=== PATIENT | female | born 1955 | race Caucasian/White ===

== ENCOUNTER 2024-02-13 22:15 | Inpatient (IN) | payer MEDICARE, OTHER ==
[~2024-02-13] VITALS: Ht 146.1 cm; Wt 67.5 kg
[~2024-02-13 22:15] MED LIST: ALPR-624 PO; AMLO-140 PO; ASPI-611 PO; CARV3.12 PO; ISOS10TA2 PO; LOSA50TA64 PO; NITR0.4T SL; PRAV40TA3 PO; TICA90TA2 PO
[2024-02-13] MEDS ORDERED: aspirin 81mg tab.chew PO ONE (22:30)
[2024-02-13] MEDS: aspirin 81mg tab.chew PO ONE (22:43)
[2024-02-13] MEDS ORDERED: nitroGLYCERIN 0.4mg SUBLingual tab SL PRN (23:00)
[2024-02-13] MEDS ORDERED: heparin 10,000 units/1 ML INJ IV ONE ×2 (23:00)
[2024-02-13] MEDS ORDERED: heparin 10,000 units/1 ML INJ IV PRN (23:00)
[2024-02-13] MEDS ORDERED: nitroGLYCERIN-Tridil 50MG/D5W 250 ML IV PRN (23:00)
[2024-02-13] MEDS ORDERED: heparin 25,000 UNIT/250ml bag 250 ML IV PRN (23:00)
[2024-02-13] MEDS ORDERED: LIDOcaine 1% 30ml preserv. free vial ONE (23:04)
[2024-02-13] MEDS ORDERED: midazolam 1 mg/ML 2ml injection ONE (23:04)
[2024-02-13] MEDS ORDERED: fentaNYL/PF 50MCG/1 ML 2ML syringe ONE (23:04)
[2024-02-13] MEDS ORDERED: heparin 1,000unit/ml 10ml vial 10 ML ONE (23:05)
[2024-02-13] MEDS ORDERED: iohexol 350MG/ML 100ml bottle IV ONE (23:05)
[2024-02-13] MEDS ORDERED: epiNEPHrine 0.1mg/ml 10ml syringe ONE (23:05)
[2024-02-13] MEDS ORDERED: atropine 0.1mg/ml 10ml syringe ONE (23:05)
[2024-02-13] MEDS ORDERED: nitroGLYCERIN 25mg/250mL D5W 250 ML IV SCH (23:05)
[2024-02-13] MEDS ORDERED: iohexol 350 MG/ML 50ML vial IV ONE (23:05)
[2024-02-13 23:08] LABS: PROTHROMBIN TIME 9.9 SECONDS (9.0-12.0)
[2024-02-13 23:10] LABS: INR 0.9 INR
[2024-02-13] MEDS: heparin 10,000 units/1 ML INJ IV ONE (23:10)
[2024-02-13] MEDS: MESSAGE TO NURSING IV ONE (23:10)
[2024-02-13] MEDS: metoprolol tartrate 1mg/ml inj IV ONE (23:11)
[2024-02-13 23:12] LABS: BASOPHILS # (AUTO) 0.1 X10'3 (0-0.2); BASOPHILS % (AUTO) 0.9 % (0-1); EOSINOPHILS # (AUTO) 0.2 X10'3 (0-0.9); EOSINOPHILS % (AUTO) 1.5 % (0-6); HEMATOCRIT 46.6 % (35.0-45.0); HEMOGLOBIN 15.5 g/dl (12.0-16.0); LYMPHOCYTES # (AUTO) 2.5 X10'3 (1.1-4.8); LYMPHOCYTES % (AUTO) 19.9 % (21-51); MEAN CORPUSCULAR HEMOGLOBIN 30.6 PG (27.0-31.0); MEAN CORPUSCULAR HGB CONC 33.3 g/dL (33.0-36.5); MEAN PLATELET VOLUME 7.6 FL (7.4-10.4); MONOCYTES # (AUTO) 1.4 X10'3 (0-0.9); NEUTROPHILS # (AUTO) 8.2 X10'3 (1.8-7.7); NEUTROPHILS % (AUTO) 66.7 % (42-75); PLATELET COUNT 317 X10'3 (140-440); RED BLOOD COUNT 5.06 X10'6 (4.20-5.60); RED CELL DISTRIBUTION WIDTH 14.1 % (11.5-14.5); WHITE BLOOD COUNT 12.3 X10'3 (4.5-11.0)
[2024-02-13] MEDS: heparin 25,000 UNIT/250ml bag 250 ML IV PRN (23:16)
[2024-02-13 23:17] LABS: ALBUMIN 3.7 G/DL (3.4-5.0); ANION GAP 8 (8-16); BLOOD UREA NITROGEN 20 MG/DL (7-18); BUN/CREATININE RATIO 17.7 (10.0-20.0); CHLORIDE 105 MMOL/L (99-107); CREATININE 1.13 MG/DL (0.40-0.90); GLUCOSE 182 MG/DL (70-104); LIPASE 17 U/L (16-77); MAGNESIUM 2.1 MG/DL (1.5-2.4); POTASSIUM 3.5 MMOL/L (3.5-5.1); PRO BRAIN NATRIURETIC PEPTIDE 1593 PG/ML (0-125); SODIUM 144 MMOL/L (135-145); TOTAL CARBON DIOXIDE 30.6 MMOL/L (24-32); eCRCL 29 ML/MIN; eGFR 48 ML/MIN
[2024-02-13] MEDS ORDERED: nitroGLYCERIN 500mcg/5mL D5W 5 ML IV ONE (23:17)
[2024-02-13] MEDS ORDERED: verapamil 2.5 mg/ml inj IV ONE (23:19)
[2024-02-13 23:24] LABS: APTT 35 SECONDS (22-32); D-DIMER 0.59 MG/L FEU (0-0.50)
[2024-02-13] MEDS ORDERED: aspirin 81mg tab.chew ONE (23:30)
[2024-02-13] MEDS ORDERED: aspirin 325mg tablet ONE (23:58)
[2024-02-14] VITALS (27 sets, daily range): BP systolic 100–168; BP diastolic 50–124; PULSE 55–81; RESP 0–23; TEMP 97.3–98.6; O2SAT 91–97
[2024-02-14] MEDS ORDERED: OXAZEpam 15mg capsule PO PRN (00:35)
[2024-02-14] MEDS: normal saline 1000ml 1,000 ML IV SCH ×2 (01:25→04:40)
[2024-02-14] MEDS ORDERED: magnesium hydroxide 30ml (MOM) UD suspension PO PRN (03:35)
[2024-02-14] MEDS ORDERED: magnesium 4gm in 100ml NS 100 ML IV PRN (03:35)
[2024-02-14] MEDS ORDERED: mag hydrox/Alum hydrox/simeth 30ml oral suspension PO PRN (03:35)
[2024-02-14] MEDS ORDERED: morphine 2 MG/ML inj. syringe IV PRN (03:35)
[2024-02-14] MEDS ORDERED: magnesium 2GM in 50ml NS 50 ML IV PRN (03:35)
[2024-02-14] MEDS ORDERED: ondansetron/PF 4mg/2ml inj IV PRN (03:35)
[2024-02-14] MEDS ORDERED: magnesium Cl slow-release 64mg tablet PO PRN (03:35)
[2024-02-14] MEDS ORDERED: potassium Cl 20 mEq SR tablet PO PRN ×2 (03:35)
[2024-02-14] MEDS: acetaminophen 325mg tablet PO PRN (05:33)
[2024-02-14] MEDS: nitroGLYCERIN-Tridil 50MG/D5W 250 ML IV SCH (05:36)
[2024-02-14 06:19] LABS: HEMOGLOBIN 13.6 g/dl (12.0-16.0)
[2024-02-14 06:21] LABS: BASOPHILS # (AUTO) 0.1 X10'3 (0-0.2); BASOPHILS % (AUTO) 0.9 % (0-1); EOSINOPHILS # (AUTO) 0.2 X10'3 (0-0.9); EOSINOPHILS % (AUTO) 2.4 % (0-6); HEMATOCRIT 40.7 % (35.0-45.0); LYMPHOCYTES # (AUTO) 3.1 X10'3 (1.1-4.8); MEAN CORPUSCULAR HEMOGLOBIN 30.9 PG (27.0-31.0); MEAN CORPUSCULAR HGB CONC 33.5 g/dL (33.0-36.5); MEAN CORPUSCULAR VOLUME 92.3 FL (78-98); MEAN PLATELET VOLUME 7.9 FL (7.4-10.4); MONOCYTES % (AUTO) 10.3 % (2-12); NEUTROPHILS # (AUTO) 5.6 X10'3 (1.8-7.7); NEUTROPHILS % (AUTO) 55.4 % (42-75); PLATELET COUNT 267 X10'3 (140-440); RED BLOOD COUNT 4.41 X10'6 (4.20-5.60); RED CELL DISTRIBUTION WIDTH 13.8 % (11.5-14.5); WHITE BLOOD COUNT 10.1 X10'3 (4.5-11.0)
[2024-02-14 06:31] LABS: ALANINE AMINOTRANSFERASE 16 U/L (12-78); ALKALINE PHOSPHATASE 101 IU/L (46-116); ANION GAP 5 (8-16); ASPARTATE AMINO TRANSFERASE 22 U/L (10-37); BILIRUBIN,TOTAL 0.4 MG/DL (0.1-1.0); BLOOD UREA NITROGEN 18 MG/DL (7-18); CALCIUM 8.8 MG/DL (8.5-10.1); CHLORIDE 109 MMOL/L (99-107); CREATININE 0.75 MG/DL (0.40-0.90); GLUCOSE 116 MG/DL (70-104); MAGNESIUM 1.9 MG/DL (1.5-2.4); PHOSPHORUS 4.3 MG/DL (2.3-4.5); POTASSIUM 3.3 MMOL/L (3.5-5.1); SODIUM 143 MMOL/L (135-145); TOTAL CARBON DIOXIDE 29.2 MMOL/L (24-32); TOTAL PROTEIN 5.9 G/DL (6.4-8.2); eCRCL 44 ML/MIN; eGFR 77 ML/MIN
[2024-02-14] MEDS: MESSAGE TO NURSING IV ONE ×4 (06:52→18:28)
[2024-02-14 07:18] LABS: HEMOGLOBIN A1C 6.2 % (4.5-6.2)
[2024-02-14] MEDS: aspirin 81mg, enteric-coated 1 TAB TABLET.DR PO SCH (07:49)
[2024-02-14] MEDS: K and/or MAG REPLACEMENT MC SCH (08:00)
[2024-02-14] MEDS: losartan 25mg tablet PO SCH (08:00)
[2024-02-14] MEDS: atorvastatin 20mg tablet PO SCH (08:00)
[2024-02-14] MEDS: metoprolol tartrate 25mg tablet PO SCH (08:00)
[2024-02-14] MEDS: potassium Cl 40MEQ/1/2NS 520ml 520 ML IV PRN (11:46)
[2024-02-14] MEDS: heparin 10,000 units/1 ML INJ IV PRN (11:52)
[2024-02-14] MEDS ORDERED: ondansetron 4mg rapidly disintigrating tab PO PRN (12:10)
[2024-02-14] MEDS: MESSAGE TO NURSING PO ONE ×4 (12:17→12:18)
[2024-02-14] MEDS ORDERED: ERGO400C2 PO (16:16)
[2024-02-14] MEDS ORDERED: UBID100C16 PO (16:16)
[2024-02-14] MEDS ORDERED: RED600TA PO (16:19)
[2024-02-14] MEDS ORDERED: ASCO100031 PO (16:19)
[2024-02-14] MEDS ORDERED: CAYE450C PO (16:19)
[2024-02-14] MEDS ORDERED: heparin 25,000 UNIT/250ml bag 250 ML IV PRN (17:59)
[2024-02-14 20:03] LABS: ABG OXYGEN SATURATION 95.2 % (94-97); ABG PCO2 (T) 34.6 mmHg (32.0-45.0); ABG PO2 (T) 70.7 mmHg (75.0-100.0); ALLEN'S TEST Modified; FCOHb 1.2 % (0.0-3.9); FHHb 4.7 % (0.0-5.0); FMetHb 0.3 % (0.0-1.5); FO2Hb 93.8 % (94-97); MODE RA; PATIENT TEMPERATURE 36.8; TOTAL HEMOGLOBIN 12.7 G/dl (12.0-16.0)
[2024-02-14] MEDS: sod chloride 0.9% 10ml flush syringe IV SCH (20:23)
[2024-02-15] VITALS (26 sets, daily range): BP systolic 118–168; BP diastolic 62–99; PULSE 54–94; RESP 11–23; O2SAT 92–99
[2024-02-15 01:33] LABS: BASOPHILS # (AUTO) 0.1 X10'3 (0-0.2); BASOPHILS % (AUTO) 0.6 % (0-1); EOSINOPHILS # (AUTO) 0.2 X10'3 (0-0.9); EOSINOPHILS % (AUTO) 2.8 % (0-6); HEMATOCRIT 36.7 % (35.0-45.0); HEMOGLOBIN 12.2 g/dl (12.0-16.0); LYMPHOCYTES % (AUTO) 33.6 % (21-51); MEAN CORPUSCULAR HEMOGLOBIN 30.9 PG (27.0-31.0); MEAN CORPUSCULAR HGB CONC 33.3 g/dL (33.0-36.5); MEAN CORPUSCULAR VOLUME 92.9 FL (78-98); MEAN PLATELET VOLUME 7.1 FL (7.4-10.4); MONOCYTES # (AUTO) 0.8 X10'3 (0-0.9); MONOCYTES % (AUTO) 9.3 % (2-12); NEUTROPHILS # (AUTO) 4.7 X10'3 (1.8-7.7); NEUTROPHILS % (AUTO) 53.7 % (42-75); PLATELET COUNT 238 X10'3 (140-440); RED BLOOD COUNT 3.95 X10'6 (4.20-5.60); RED CELL DISTRIBUTION WIDTH 13.7 % (11.5-14.5); WHITE BLOOD COUNT 8.8 X10'3 (4.5-11.0)
[2024-02-15 01:50] LABS: ALANINE AMINOTRANSFERASE 38 U/L (12-78); ALBUMIN 2.9 G/DL (3.4-5.0); ALKALINE PHOSPHATASE 85 IU/L (46-116); ANION GAP 5 (8-16); ASPARTATE AMINO TRANSFERASE 37 U/L (10-37); BILIRUBIN,TOTAL 0.3 MG/DL (0.1-1.0); BLOOD UREA NITROGEN 11 MG/DL (7-18); BUN/CREATININE RATIO 16.7 (10.0-20.0); CALCIUM 8.3 MG/DL (8.5-10.1); CHLORIDE 112 MMOL/L (99-107); CHOL/HDL RATIO 3.4 (0.00-4.99); CHOLESTEROL 163 MG/DL (0-200); CREATININE 0.66 MG/DL (0.40-0.90); GLUCOSE 115 MG/DL (70-104); HDL CHOLESTEROL 48 MG/DL (35-60); LDL CHOLESTEROL 92 MG/DL (50-100); MAGNESIUM 1.7 MG/DL (1.5-2.4); PHOSPHORUS 3.3 MG/DL (2.3-4.5); POTASSIUM 3.7 MMOL/L (3.5-5.1); SODIUM 143 MMOL/L (135-145); TOTAL CARBON DIOXIDE 25.8 MMOL/L (24-32); TOTAL PROTEIN 5.7 G/DL (6.4-8.2); TRIGLYCERIDES 111 MG/DL (20-135); eCRCL 50 ML/MIN; eGFR 89 ML/MIN
[2024-02-15] MEDS: MESSAGE TO NURSING IV ONE (02:52)
[2024-02-15] MEDS: cefazolin 2gm/D5W 100mL 100 ML IV ONE (05:30)
[2024-02-15] MEDS ORDERED: heparin 10,000 units/1 ML INJ ONE (06:08)
[2024-02-15] MEDS ORDERED: BUPIVACAINE liposomal/PF 13.3 MG/ML vial IM ONE (06:09)
[2024-02-15] MEDS ORDERED: ceFAZolin 1000mg inj ONE (06:09)
[2024-02-15] MEDS ORDERED: BUPIVAcaine/PF 2.5mg/ml (0.25%) 10ml vial ONE (06:09)
[2024-02-15] MEDS ORDERED: LIDOcaine 1% (10mg/ml) 2ml vial ONE (06:45)
[2024-02-15] MEDS ORDERED: aminocaproic acid 250 MG/1 ML inj. ONE (08:00)
[2024-02-15] MEDS: MESSAGE TO PHARMACY IJ ONE (08:00)
[2024-02-15] MEDS ORDERED: papaverine 30 mg/ml 2ml inj. ONE (08:00)
[2024-02-15] MEDS: ceFAZolin 1000mg inj IR ONE (08:00)
[2024-02-15] MEDS ORDERED: MIDAZolam 1 MG/ML 5ML VIAL ONE (08:03)
[2024-02-15] MEDS ORDERED: SUfentanil 50mcg/ml 1ml amp IV ONE (08:04)
[2024-02-15] MEDS ORDERED: rocuronium 10mg/ml inj IV ONE ×3 (08:05→11:29)
[2024-02-15] MEDS ORDERED: propofol inj 20 ML IV ONE (08:07)
[2024-02-15] MEDS ORDERED: ePHEDrine 50MG/ML INJ. ONE (08:07)
[2024-02-15] MEDS ORDERED: sevoflurane 250ml liquid IH ONE (08:12)
[2024-02-15] MEDS ORDERED: Insulin Reg/NS 100units/100mL 100 ML IV SCH (08:50)
[2024-02-15] MEDS ORDERED: dextrose 50%-water 50ml dispensing syringe IV PRN ×2 (08:50→13:05)
[2024-02-15 09:01] LABS: ABG BASE EXCESS -1.4 mmol/L (-2.0-2.0); ABG HCO3 22.1 mmol/L (22.0-26.0); ABG PCO2 33.1 mmHg (32.0-45.0); ABG PH 7.442 (7.350-7.450); ABG PO2 274.7 mmHg (75.0-100.0); CL (ABG) 110 mmol/L (99-107); FCOHb 0.3 % (0.0-3.9); FO2Hb 98.7 % (94-97); GLUCOSE (ABG) 143 mg/dl (70-104); IONIZED CA (ABG) 1.15 mmol/L (1.10-1.30); K (ABG) 3.5 mmol/L (3.5-5.1); TOTAL HEMOGLOBIN 12.1 G/dl (12.0-16.0)
[2024-02-15] MEDS: MESSAGE TO NURSING PO ONE (10:31)
[2024-02-15 11:16] LABS: ABG BASE EXCESS VENOUS -2.2 mmol/L (-2.0 - 2.0); ABG HCO3 VENOUS 23.3 mmol/L (21.0-28.0); ABG OXYGEN SATURATION VENOUS 78.6 % (75 - 99 %); ABG PCO2 VENOUS 42.7 mmHg (38.0-51.0); ABG PH (VENOUS) 7.354 (7.310-7.450); ABG PO2 VENOUS 42.7 mmHg (25.0-35.0); CL (ABG) 110 mmol/L (99-107); FCOHb VENOUS 0.6 % (0.0- 3.9); FHHb VENOUS 21.2 %; FMetHb VENOUS 0.3 % (0.0 - 0.5); FO2Hb VENOUS 77.9 %; GLUCOSE (ABG) 116 mg/dl (70-104); IONIZED CA (ABG) 1.14 mmol/L (1.10-1.30); K (ABG) 3.4 mmol/L (3.5-5.1); TOTAL HEMOGLOBIN 12.4 G/dl (12.0-16.0)
[2024-02-15 12:14] LABS: ABG BASE EXCESS VENOUS -4.3 mmol/L (-2.0 - 2.0); ABG HCO3 VENOUS 21.7 mmol/L (21.0-28.0); ABG OXYGEN SATURATION VENOUS 77.9 % (75 - 99 %); ABG PCO2 VENOUS 42.9 mmHg (38.0-51.0); ABG PH (VENOUS) 7.321 (7.310-7.450); ABG PO2 VENOUS 43.6 mmHg (25.0-35.0); CL (ABG) 111 mmol/L (99-107); FCOHb VENOUS 0.3 % (0.0- 3.9); FMetHb VENOUS 0.1 % (0.0 - 0.5); FO2Hb VENOUS 77.6 %; GLUCOSE (ABG) 100 mg/dl (70-104); IONIZED CA (ABG) 1.14 mmol/L (1.10-1.30); TOTAL HEMOGLOBIN 12.3 G/dl (12.0-16.0)
[2024-02-15] MEDS ORDERED: fentaNYL/PF 50MCG/1 ML 2ML syringe ONE (12:46)
[2024-02-15] MEDS ORDERED: potassium Cl 20 mEq SR tablet PO PRN (13:05)
[2024-02-15] MEDS ORDERED: niCARDipine-NS 40mg/200ml IVPB 200 ML IV PRN (13:05)
[2024-02-15] MEDS ORDERED: bisacodyl 10mg suppository rectal RC PRN (13:05)
[2024-02-15] MEDS ORDERED: potassium CL 10mEq/100ml bag 100 ML IV PRN (13:05)
[2024-02-15] MEDS ORDERED: albumin (Human) 5% 250ml 250 ML IV PRN (13:05)
[2024-02-15] MEDS ORDERED: nitroGLYCERIN-Tridil 50MG/D5W 250 ML IV PRN (13:05)
[2024-02-15] MEDS ORDERED: magnesium hydroxide 30ml (MOM) UD suspension PO PRN (13:05)
[2024-02-15] MEDS ORDERED: sodium phosphate inj. 15 MMOL in dextrose 5%-water 250 ML IV PRN (13:05)
[2024-02-15] MEDS ORDERED: insulin glargine (Lantus) pen - multi-dose SQ PRN (13:05)
[2024-02-15] MEDS ORDERED: metoclopramide 5 mg/ml inj IV PRN (13:05)
[2024-02-15] MEDS ORDERED: sodium phosphate inj. 30 MMOL in dextrose 5%-water 250 ML IV PRN (13:05)
[2024-02-15] MEDS ORDERED: Neutra Phos packet PO PRN (13:05)
[2024-02-15] MEDS ORDERED: mineral oil 133ml enema RC PRN (13:05)
[2024-02-15] MEDS ORDERED: potassium Cl 40MEQ/270ML bag 250 ML IV PRN (13:05)
[2024-02-15] MEDS ORDERED: potassium Cl 40MEQ/1/2NS 520ml 520 ML IV PRN (13:05)
[2024-02-15] MEDS ORDERED: DOPamine 400mg/D5W 250ml 250 ML IV PRN (13:05)
[2024-02-15] MEDS ORDERED: normal saline 250ml IV soln 250 ML IV PRN (13:05)
[2024-02-15] MEDS: albumin (Human) 5% 250ml 250 ML IV ONE (13:29)
[2024-02-15 13:58] LABS: BASOPHILS # (AUTO) 0.1 X10'3 (0-0.2); BASOPHILS % (AUTO) 0.6 % (0-1); EOSINOPHILS # (AUTO) 0.2 X10'3 (0-0.9); HEMATOCRIT 35.6 % (35.0-45.0); HEMOGLOBIN 11.4 g/dl (12.0-16.0); LYMPHOCYTES # (AUTO) 2.5 X10'3 (1.1-4.8); LYMPHOCYTES % (AUTO) 13.4 % (21-51); MEAN CORPUSCULAR HGB CONC 31.9 g/dL (33.0-36.5); MEAN CORPUSCULAR VOLUME 94.1 FL (78-98); MEAN PLATELET VOLUME 7.6 FL (7.4-10.4); MONOCYTES # (AUTO) 1.5 X10'3 (0-0.9); MONOCYTES % (AUTO) 7.6 % (2-12); NEUTROPHILS # (AUTO) 14.7 X10'3 (1.8-7.7); NEUTROPHILS % (AUTO) 77.4 % (42-75); PLATELET COUNT 172 X10'3 (140-440); RED BLOOD COUNT 3.79 X10'6 (4.20-5.60); RED CELL DISTRIBUTION WIDTH 13.9 % (11.5-14.5)
[2024-02-15] MEDS: Insulin Reg/NS 100units/100mL 100 ML IV SCH (14:03)
[2024-02-15] MEDS: sodium chloride 0.45% 1,000 ML IV SCH (14:03)
[2024-02-15 14:09] LABS: ALANINE AMINOTRANSFERASE 30 U/L (12-78); ALBUMIN 2.4 G/DL (3.4-5.0); ALKALINE PHOSPHATASE 71 IU/L (46-116); ANION GAP 6 (8-16); ASPARTATE AMINO TRANSFERASE 23 U/L (10-37); BILIRUBIN,TOTAL 0.3 MG/DL (0.1-1.0); BLOOD UREA NITROGEN 5 MG/DL (7-18); BUN/CREATININE RATIO 9.8 (10.0-20.0); CALCIUM 8.5 MG/DL (8.5-10.1); CHLORIDE 115 MMOL/L (99-107); CREATININE 0.51 MG/DL (0.40-0.90); GLUCOSE 118 MG/DL (70-104); MAGNESIUM 1.4 MG/DL (1.5-2.4); PHOSPHORUS 2.9 MG/DL (2.3-4.5); POTASSIUM 4.2 MMOL/L (3.5-5.1); SODIUM 145 MMOL/L (135-145); TOTAL CARBON DIOXIDE 24.2 MMOL/L (24-32); TOTAL PROTEIN 4.7 G/DL (6.4-8.2); eCRCL 65 ML/MIN; eGFR > 90 ML/MIN
[2024-02-15] MEDS: magnesium 4gm in 100ml NS 100 ML IV PRN (14:24)
[2024-02-15] MEDS: potassium Cl 20mEq/100mL bag 100 ML IV PRN (14:30)
[2024-02-15 14:46] LABS: APTT 34 SECONDS (22-32); INR 1.2 INR
[2024-02-15 14:47] LABS: FIBRINOGEN 272 MG/DL (177-424)
[2024-02-15] MEDS: cefazolin 2gm/D5W 100mL 100 ML IV SCH (15:25)
[2024-02-15] MEDS: acetaminophen 1,000mg/100ml IV 100 ML IV SCH (15:55)
[2024-02-15] MEDS: HYDROmorphone inj. 0.5 MG/0.5 ML DISP.SYRIN IV ONE ×2 (16:55→18:17)
[2024-02-15] MEDS: traMADol 50MG tablet PO PRN (17:17)
[2024-02-15] MEDS: magnesium 2GM in 50ml NS 50 ML IV PRN (17:27)
[2024-02-15] MEDS: gabapentin 300mg capsule PO ONE (18:48)
[2024-02-15] MEDS: ondansetron/PF 4mg/2ml inj IV PRN (18:55)
[2024-02-15 19:33] LABS: BASOPHILS % (AUTO) 0.1 % (0-1); EOSINOPHILS % (AUTO) 0 % (0-6); HEMATOCRIT 38.9 % (35.0-45.0); HEMOGLOBIN 12.6 g/dl (12.0-16.0); LYMPHOCYTES # (AUTO) 0.7 X10'3 (1.1-4.8); LYMPHOCYTES % (AUTO) 3.4 % (21-51); MEAN CORPUSCULAR HEMOGLOBIN 30.6 PG (27.0-31.0); MEAN CORPUSCULAR HGB CONC 32.5 g/dL (33.0-36.5); MEAN CORPUSCULAR VOLUME 94.1 FL (78-98); MEAN PLATELET VOLUME 7.6 FL (7.4-10.4); MONOCYTES # (AUTO) 2.3 X10'3 (0-0.9); MONOCYTES % (AUTO) 11.1 % (2-12); NEUTROPHILS # (AUTO) 17.4 X10'3 (1.8-7.7); NEUTROPHILS % (AUTO) 85.4 % (42-75); PLATELET COUNT 237 X10'3 (140-440); RED BLOOD COUNT 4.13 X10'6 (4.20-5.60); RED CELL DISTRIBUTION WIDTH 13.8 % (11.5-14.5); WHITE BLOOD COUNT 20.4 X10'3 (4.5-11.0)
[2024-02-15 19:46] LABS: ALBUMIN 3.4 G/DL (3.4-5.0); ANION GAP 9 (8-16); BLOOD UREA NITROGEN 5 MG/DL (7-18); BUN/CREATININE RATIO 7.6 (10.0-20.0); CALCIUM 8.2 MG/DL (8.5-10.1); CHLORIDE 108 MMOL/L (99-107); CREATININE 0.66 MG/DL (0.40-0.90); GLUCOSE 149 MG/DL (70-104); MAGNESIUM 3.1 MG/DL (1.5-2.4); PHOSPHORUS 2.8 MG/DL (2.3-4.5); POTASSIUM 3.5 MMOL/L (3.5-5.1); SODIUM 142 MMOL/L (135-145); TOTAL CARBON DIOXIDE 25.2 MMOL/L (24-32); eCRCL 50 ML/MIN; eGFR 89 ML/MIN
[2024-02-15] MEDS: mupirocin 2% nasal ointment 1gm UD NS SCH (20:00)
[2024-02-15] MEDS: sennosides/docusate sodium tablet PO SCH (20:00)
[2024-02-15] MEDS: gabapentin 300mg capsule PO SCH (20:48)
[2024-02-15] MEDS: atorvastatin 10mg tablet PO SCH (20:48)
[2024-02-16] VITALS (17 sets, daily range): BP systolic 117–147; BP diastolic 64–87; PULSE 86–106; RESP 13–22; O2SAT 92–96
[2024-02-16] MEDS: HYDROmorphone inj. 0.5 MG/0.5 ML DISP.SYRIN IV ONE (00:23)
[2024-02-16 03:47] LABS: BASOPHILS % (AUTO) 0.2 % (0-1); EOSINOPHILS % (AUTO) 0 % (0-6); HEMATOCRIT 37.8 % (35.0-45.0); HEMOGLOBIN 12.3 g/dl (12.0-16.0); LYMPHOCYTES # (AUTO) 0.9 X10'3 (1.1-4.8); LYMPHOCYTES % (AUTO) 5.1 % (21-51); MEAN CORPUSCULAR HEMOGLOBIN 30.5 PG (27.0-31.0); MEAN CORPUSCULAR HGB CONC 32.6 g/dL (33.0-36.5); MEAN CORPUSCULAR VOLUME 93.4 FL (78-98); MEAN PLATELET VOLUME 7.8 FL (7.4-10.4); MONOCYTES # (AUTO) 1.5 X10'3 (0-0.9); MONOCYTES % (AUTO) 8.8 % (2-12); NEUTROPHILS # (AUTO) 14.4 X10'3 (1.8-7.7); NEUTROPHILS % (AUTO) 85.9 % (42-75); PLATELET COUNT 222 X10'3 (140-440); RED BLOOD COUNT 4.05 X10'6 (4.20-5.60); WHITE BLOOD COUNT 16.8 X10'3 (4.5-11.0)
[2024-02-16 03:58] LABS: ALANINE AMINOTRANSFERASE 27 U/L (12-78); ALKALINE PHOSPHATASE 83 IU/L (46-116); ANION GAP 7 (8-16); ASPARTATE AMINO TRANSFERASE 29 U/L (10-37); BILIRUBIN,TOTAL 0.4 MG/DL (0.1-1.0); BLOOD UREA NITROGEN 5 MG/DL (7-18); BUN/CREATININE RATIO 6.7 (10.0-20.0); CALCIUM 8.3 MG/DL (8.5-10.1); CHLORIDE 108 MMOL/L (99-107); CREATININE 0.75 MG/DL (0.40-0.90); GLUCOSE 131 MG/DL (70-104); MAGNESIUM 2.2 MG/DL (1.5-2.4); PHOSPHORUS 3.3 MG/DL (2.3-4.5); POTASSIUM 4.3 MMOL/L (3.5-5.1); SODIUM 141 MMOL/L (135-145); TOTAL CARBON DIOXIDE 25.7 MMOL/L (24-32); TOTAL PROTEIN 5.9 G/DL (6.4-8.2); eCRCL 44 ML/MIN; eGFR 77 ML/MIN
[2024-02-16 06:37] LABS: ACT @ 1.70 U 346 SEC (193-297); ACT @ 2.84 U 501 SEC (260-420); BASELINE ACT 162 SEC (101-148); PATIENT WEIGHT 64.0k KG
[2024-02-16] MEDS: aspirin 81mg tab.chew PO SCH (07:19)
[2024-02-16 09:20] LABS: ABG BASE EXCESS -6.3 mmol/L (-2.0-2.0); ABG OXYGEN SATURATION 97.8 % (94-97); ABG PCO2 (T) 34.1 mmHg (32.0-45.0); ABG PH (T) 7.354 (7.350-7.450); ABG PO2 (T) 95.2 mmHg (75.0-100.0); FCOHb 0.4 % (0.0-3.9); FHHb 2.2 % (0.0-5.0); FMetHb 0.3 % (0.0-1.5); FO2Hb 97.1 % (94-97); MODE VENT - SIMV; PATIENT TEMPERATURE 35.1; PEEP 5 cm H2O; RESPIRATORY RATE 12 b/min; TIDAL VOLUME 450 mL; TOTAL HEMOGLOBIN 12.8 G/dl (12.0-16.0)
[2024-02-16] MEDS ORDERED: glucagon, human recombinant 1mg kit SUBCUT PRN (09:45)
[2024-02-16] MEDS ORDERED: dextrose 50%-water 50ml dispensing syringe IV PRN ×2 (09:45)
[2024-02-16] MEDS ORDERED: DEXTROSE 15 GM of carb/4 tabs (each vial/BOTTLE has 4 tablets) PO PRN ×2 (09:45)
[2024-02-16] MEDS: insulin glargine (Lantus) pen - multi-dose SQ ONE (09:52)
[2024-02-16] MEDS: potassium Cl 20 mEq SR tablet PO SCH (12:34)
[2024-02-16] MEDS: colchicine 0.6mg tablet PO SCH (12:34)
[2024-02-16] MEDS: INSULIN LISPRO 100 UNIT/ML INSULN.PEN MULTI-DOSE SQ SCH ×3 (12:36→18:26)
[2024-02-16] MEDS: furosemide 20 MG/2 ML vial IV SCH (20:36)
[2024-02-16] MEDS: metoprolol tartrate 25mg tablet PO SCH (20:37)
[2024-02-16] MEDS: atorvastatin 20mg tablet PO SCH (20:40)
[2024-02-16] MEDS: insulin glargine (Lantus) pen - multi-dose SQ SCH (20:44)
[2024-02-17] VITALS (9 sets, daily range): BP systolic 100–152; BP diastolic 64–87; PULSE 75–98; RESP 14–22; TEMP 97.7–98.3; O2SAT 94–97
[2024-02-17 02:53] LABS: BASOPHILS % (AUTO) 0.3 % (0-1); EOSINOPHILS # (AUTO) 0.1 X10'3 (0-0.9); EOSINOPHILS % (AUTO) 0.5 % (0-6); HEMATOCRIT 33.8 % (35.0-45.0); HEMOGLOBIN 11.1 g/dl (12.0-16.0); LYMPHOCYTES # (AUTO) 1.8 X10'3 (1.1-4.8); LYMPHOCYTES % (AUTO) 10.3 % (21-51); MEAN CORPUSCULAR HEMOGLOBIN 30.8 PG (27.0-31.0); MEAN CORPUSCULAR HGB CONC 32.8 g/dL (33.0-36.5); MEAN CORPUSCULAR VOLUME 93.9 FL (78-98); MEAN PLATELET VOLUME 7.5 FL (7.4-10.4); MONOCYTES # (AUTO) 1.8 X10'3 (0-0.9); MONOCYTES % (AUTO) 10.4 % (2-12); NEUTROPHILS # (AUTO) 13.5 X10'3 (1.8-7.7); NEUTROPHILS % (AUTO) 78.5 % (42-75); PLATELET COUNT 196 X10'3 (140-440); RED CELL DISTRIBUTION WIDTH 14.1 % (11.5-14.5); WHITE BLOOD COUNT 17.2 X10'3 (4.5-11.0)
[2024-02-17 03:04] LABS: ALBUMIN 2.6 G/DL (3.4-5.0); ANION GAP 3 (8-16); BLOOD UREA NITROGEN 19 MG/DL (7-18); BUN/CREATININE RATIO 17.1 (10.0-20.0); CALCIUM 8.6 MG/DL (8.5-10.1); CHLORIDE 106 MMOL/L (99-107); CREATININE 1.11 MG/DL (0.40-0.90); GLUCOSE 132 MG/DL (70-104); MAGNESIUM 2.1 MG/DL (1.5-2.4); PHOSPHORUS 3.4 MG/DL (2.3-4.5); POTASSIUM 4.8 MMOL/L (3.5-5.1); SODIUM 138 MMOL/L (135-145); TOTAL CARBON DIOXIDE 28.6 MMOL/L (24-32); eCRCL 30 ML/MIN; eGFR 49 ML/MIN
[2024-02-17] MEDS: pantoprazole 40mg Tablet.DR PO SCH (07:23)
[2024-02-17] MEDS: INSULIN LISPRO 100 UNIT/ML INSULN.PEN MULTI-DOSE SQ SCH (08:18)
[2024-02-17] MEDS ORDERED: potassium Cl 20mEq/100mL bag 100 ML IV PRN (08:25)
[2024-02-17] MEDS ORDERED: potassium CL 10mEq/100ml bag 100 ML IV PRN (08:25)
[2024-02-17] MEDS ORDERED: magnesium 4gm in 100ml NS 100 ML IV PRN (08:25)
[2024-02-17] MEDS ORDERED: potassium Cl 40MEQ/1/2NS 520ml 520 ML IV PRN (08:25)
[2024-02-17] MEDS ORDERED: potassium Cl 40MEQ/270ML bag 250 ML IV PRN (08:25)
[2024-02-17] MEDS ORDERED: magnesium 2GM in 50ml NS 50 ML IV PRN (08:25)
[2024-02-17] MEDS ORDERED: potassium Cl 20 mEq SR tablet PO PRN ×2 (08:25)
[2024-02-17] MEDS: magnesium Cl slow-release 64mg tablet PO SCH (20:27)
[2024-02-17] MEDS: furosemide 20MG tablet PO SCH (20:28)
[2024-02-17] MEDS: enoxaparin 30mg/0.3ml syringe SUBCUT SCH (20:28)
[2024-02-18] VITALS (8 sets, daily range): BP systolic 104–128; BP diastolic 68–97; PULSE 18–92; RESP 14–27; TEMP 97.6–98.6; O2SAT 92–97
[2024-02-18 06:53] LABS: BASOPHILS # (AUTO) 0.1 X10'3 (0-0.2); BASOPHILS % (AUTO) 0.5 % (0-1); EOSINOPHILS # (AUTO) 0.3 X10'3 (0-0.9); HEMATOCRIT 34.3 % (35.0-45.0); HEMOGLOBIN 11.3 g/dl (12.0-16.0); LYMPHOCYTES # (AUTO) 2.2 X10'3 (1.1-4.8); LYMPHOCYTES % (AUTO) 15.5 % (21-51); MEAN CORPUSCULAR HGB CONC 32.9 g/dL (33.0-36.5); MEAN PLATELET VOLUME 7.8 FL (7.4-10.4); MONOCYTES # (AUTO) 1.6 X10'3 (0-0.9); MONOCYTES % (AUTO) 11.4 % (2-12); NEUTROPHILS # (AUTO) 10.1 X10'3 (1.8-7.7); NEUTROPHILS % (AUTO) 70.6 % (42-75); PLATELET COUNT 227 X10'3 (140-440); RED BLOOD COUNT 3.65 X10'6 (4.20-5.60); RED CELL DISTRIBUTION WIDTH 14.2 % (11.5-14.5); WHITE BLOOD COUNT 14.3 X10'3 (4.5-11.0)
[2024-02-18 07:24] LABS: ALBUMIN 2.4 G/DL (3.4-5.0); ANION GAP 6 (8-16); BLOOD UREA NITROGEN 27 MG/DL (7-18); BUN/CREATININE RATIO 35.5 (10.0-20.0); CALCIUM 8.9 MG/DL (8.5-10.1); CHLORIDE 108 MMOL/L (99-107); CREATININE 0.76 MG/DL (0.40-0.90); GLUCOSE 127 MG/DL (70-104); MAGNESIUM 1.7 MG/DL (1.5-2.4); POTASSIUM 4.7 MMOL/L (3.5-5.1); SODIUM 142 MMOL/L (135-145); TOTAL CARBON DIOXIDE 27.8 MMOL/L (24-32); eCRCL 44 ML/MIN; eGFR 75 ML/MIN
[2024-02-18] MEDS ORDERED: ATOR20TA66 PO (08:37)
[2024-02-18] MEDS ORDERED: ASPI81TA53 PO (08:37)
[2024-02-18] MEDS ORDERED: LOP25T PO (08:37)
[2024-02-18] MEDS ORDERED: TRAM50TA2 PO (08:37)
[2024-02-19 02:30] VITALS: BP 131/75; PULSE 78; RESP 20; TEMP 98.7; O2SAT 94
[2024-02-19 07:00] VITALS: BP 138/74; PULSE 86; RESP 16; TEMP 98; O2SAT 97
[2024-02-19 07:30] LABS: BASOPHILS # (AUTO) 0.1 X10'3 (0-0.2); BASOPHILS % (AUTO) 0.8 % (0-1); EOSINOPHILS # (AUTO) 0.3 X10'3 (0-0.9); EOSINOPHILS % (AUTO) 2.2 % (0-6); HEMATOCRIT 34.9 % (35.0-45.0); HEMOGLOBIN 11.5 g/dl (12.0-16.0); LYMPHOCYTES # (AUTO) 2.4 X10'3 (1.1-4.8); LYMPHOCYTES % (AUTO) 20.2 % (21-51); MEAN CORPUSCULAR HEMOGLOBIN 30.9 PG (27.0-31.0); MEAN CORPUSCULAR VOLUME 93.5 FL (78-98); MEAN PLATELET VOLUME 7.8 FL (7.4-10.4); MONOCYTES # (AUTO) 1.4 X10'3 (0-0.9); MONOCYTES % (AUTO) 11.4 % (2-12); NEUTROPHILS # (AUTO) 7.9 X10'3 (1.8-7.7); NEUTROPHILS % (AUTO) 65.4 % (42-75); PLATELET COUNT 304 X10'3 (140-440); RED BLOOD COUNT 3.73 X10'6 (4.20-5.60); WHITE BLOOD COUNT 12.1 X10'3 (4.5-11.0)
[2024-02-19 07:36] VITALS: BP_SYST 138; PULSE 86
[2024-02-19 07:50] LABS: ALBUMIN 2.4 G/DL (3.4-5.0); ANION GAP 8 (8-16); BLOOD UREA NITROGEN 20 MG/DL (7-18); CALCIUM 8.5 MG/DL (8.5-10.1); CHLORIDE 106 MMOL/L (99-107); CREATININE 0.69 MG/DL (0.40-0.90); GLUCOSE 103 MG/DL (70-104); MAGNESIUM 1.7 MG/DL (1.5-2.4); POTASSIUM 4.3 MMOL/L (3.5-5.1); SODIUM 142 MMOL/L (135-145); TOTAL CARBON DIOXIDE 27.7 MMOL/L (24-32); eCRCL 48 ML/MIN; eGFR 84 ML/MIN
[2024-02-19 08:00] VITALS: RESP 14; O2SAT 96
[2024-02-19] MEDS ORDERED: CLOP-32 PO (08:44)
== END 2024-02-19 11:40 | disposition home health service (06) | DRG 231 ==
LOC: ER 22:15 → ED HOLD 23:31 → CICU 2S 02-14 01:08 → PCU 3S 02-17 14:44
PROVIDERS: ADMIT Surgery Surgical Critical Care; ATTEND Internal Medicine
PROC: 02703ZZ Dilation of Coronary Artery, One Artery, Percutaneous Approach (ICD-10-PCS; 2024-02-13)
PROC: 4A023N7 Measurement of Cardiac Sampling and Pressure, Left Heart, Percutaneous Approach (ICD-10-PCS; 2024-02-13)
PROC: B2111ZZ Fluoroscopy of Multiple Coronary Arteries using Low Osmolar Contrast (ICD-10-PCS; 2024-02-13)
PROC: B2151ZZ Fluoroscopy of Left Heart using Low Osmolar Contrast (ICD-10-PCS; 2024-02-13)
PROC: 021209W Bypass Coronary Artery, Three Arteries from Aorta with Autologous Venous Tissue, Open Approach (ICD-10-PCS; 2024-02-15)
PROC: 02HV33Z Insertion of Infusion Device into Superior Vena Cava, Percutaneous Approach (ICD-10-PCS; 2024-02-15)
PROC: 06BP4ZZ Excision of Right Saphenous Vein, Percutaneous Endoscopic Approach (ICD-10-PCS; 2024-02-15)
PROC: B24BZZ4 Ultrasonography of Heart with Aorta, Transesophageal (ICD-10-PCS; 2024-02-15)
PROC: 02100Z9 Bypass Coronary Artery, One Artery from Left Internal Mammary, Open Approach (ICD-10-PCS; principal; 2024-02-15 08:12)
DX: T82.855A Stenosis of coronary artery stent, initial encounter (principal); I21.19 ST elevation (STEMI) myocardial infarction involving other coronary artery of inferior wall; J96.90 Respiratory failure, unspecified, unspecified whether with hypoxia or hypercapnia; E78.00 Pure hypercholesterolemia, unspecified; I25.10 Atherosclerotic heart disease of native coronary artery without angina pectoris; J44.9 Chronic obstructive pulmonary disease, unspecified; I10 Essential (primary) hypertension; Y83.1 Surgical operation with implant of artificial internal device as the cause of abnormal reaction of the patient, or of later complication, without mention of misadventure at the time of the procedure; M81.0 Age-related osteoporosis without current pathological fracture; F17.210 Nicotine dependence, cigarettes, uncomplicated; I25.2 Old myocardial infarction; Z71.6 Tobacco abuse counseling; Z82.49 Family history of ischemic heart disease and other diseases of the circulatory system; Z85.828 Personal history of other malignant neoplasm of skin; Z90.49 Acquired absence of other specified parts of digestive tract; Z91.199 Patient's noncompliance with other medical treatment and regimen due to unspecified reason; Z95.5 Presence of coronary angioplasty implant and graft; Z63.4 Disappearance and death of family member; Z88.8 Allergy status to other drugs, medicaments and biological substances; Z82.0 Family history of epilepsy and other diseases of the nervous system; Y92.89 Other specified places as the place of occurrence of the external cause
CPT/HCPCS: 0232T; 93306; 93312; 93325; 93458; 99285; C9606; 36415; 36600; 71045; 80048; 80053; 80061; 82330; 82435; 82800; 82803; 82947; 82948; 83036; 83690; 83735; 83880; 84100; 84132; 84295; 84484; 85018; 85025; 85347; 85379; 85384; 85610; 85730; 86885; 86900; 86901; 86920; 93005; 93880; 93970; 94002; 94010; 94664; 94760; 97161; 99152; 99153; A4615; A4618; A6213; A6258; A6449; A7000; C1725; C1751; C1769; C1894; C9290; G0378; J0131; J0171; J0461; J0690; J1170; J1644; J1650; J1815; J1940; J2250; J2405; J2440; J2704; J2720; J3010; J3475; J3480; J3490; J7030; J7040; J7050; J7120; P9045; Q9967